=== PATIENT | female | born 1990 | race Hispanic/Latino ===

== ENCOUNTER 2021-05-14 10:31 | Emergency (ER) | payer OTHER ==
[~2021-05-14] VITALS: Ht 167.6 cm; Wt 113.4 kg
[2021-05-14 11:36] LABS: BASOPHILS % (AUTO) 0.4 % (0.0-5.0); EOSINOPHILS % (AUTO) 0.3 % (0.0-8.0); HEMATOCRIT 40.2 % (36-48); LYMPHOCYTES % (AUTO) 28.9 % (21.0-51.0); MEAN CORPUSCULAR HEMOGLOBIN 30.5 pg (27.0-33.0); MEAN CORPUSCULAR HGB CONC 33.3 g/dL (32.0-36.0); MEAN CORPUSCULAR VOLUME 91.6 fL (79-99); MONOCYTES % (AUTO) 9.2 % (3.0-13.0); NEUTROPHILS % (AUTO) 60.8 % (40.0-77.0); PLATELET COUNT (AUTO) 255 K/uL (130-400); RED BLOOD CELL COUNT(AUTO) 4.39 MIL/uL (4.00-5.50); RED CELL DISTRIBUTION WIDTH 13.2 % (11.0-15.5); WHITE BLOOD COUNT (AUTO) 7.2 K/uL (4.8-10.8)
[2021-05-14 11:58] LABS: CREATININE 0.6 mg/dL (0.5-1.5); POTASSIUM 4.2 mmol/L (3.5-5.1)
[2021-05-14] MEDS: CEFTRIAXONE 1G VIAL IVP ONE ×2 (12:24→12:41)
[2021-05-14] MEDS ORDERED: SULFAMETHOX-TMP DS 800/160 TAB PO SCH (12:30)
[2021-05-14] MEDS ORDERED: SULF1TAB42 PO (12:41)
[2021-05-14] MEDS ORDERED: CEPH500B PO (12:41)
[2021-05-14 12:42] VITALS: BP 114/61
== END 2021-05-14 12:51 | disposition home or self-care (01) ==
LOC: EDH 10:31
DX: L03.113 Cellulitis of right upper limb (principal); L03.123 Acute lymphangitis of right upper limb; J45.909 Unspecified asthma, uncomplicated
CPT/HCPCS: 36415; 73130; 80048; 83605; 85025; 87040 ×2; 99284; J0696

== ENCOUNTER 2021-10-01 13:00 | Emergency (ER) | payer OTHER ==
[~2021-10-01] VITALS: Ht 165.1 cm; Wt 90.7 kg
[~2021-10-01 13:00] MED LIST: CEPH500B PO; SULF1TAB42 PO
[2021-10-01 13:49] LABS: BASOPHILS % (AUTO) 0.5 % (0.0-5.0); EOSINOPHILS % (AUTO) 1.8 % (0.0-8.0); HEMATOCRIT 36.9 % (36-48); LYMPHOCYTES % (AUTO) 37.3 % (21.0-51.0); MEAN CORPUSCULAR HEMOGLOBIN 31.3 pg (27.0-33.0); MEAN CORPUSCULAR HGB CONC 33.6 g/dL (32.0-36.0); MEAN CORPUSCULAR VOLUME 93.2 fL (79-99); MONOCYTES % (AUTO) 8.3 % (3.0-13.0); NEUTROPHILS % (AUTO) 51.9 % (40.0-77.0); PLATELET COUNT (AUTO) 278 K/uL (130-400); RED BLOOD CELL COUNT(AUTO) 3.96 MIL/uL (4.00-5.50); RED CELL DISTRIBUTION WIDTH 13.1 % (11.0-15.5); WHITE BLOOD COUNT (AUTO) 9.4 K/uL (4.8-10.8)
[2021-10-01 13:58] LABS: CREATININE 0.6 mg/dL (0.5-1.5); POTASSIUM 3.7 mmol/L (3.5-5.1)
[2021-10-01] MEDS ORDERED: KETOROLAC 60 MG VIAL (30MG/ML) IM ONE (14:00)
[2021-10-01 14:05] LABS: APPEARANCE,URINE Cloudy (CLEAR); BILIRUBIN,URINE Negative (NEGATIVE); COLOR,URINE Yellow (YELLOW); GLUCOSE, URINE (UA) Negative (NEGATIVE); KETONES,URINE Negative (NEGATIVE); LEUKOCYTE ESTERASE ,URINE Negative (NEGATIVE); NITRATE,URINE Negative (NEGATIVE); OCCULT BLOOD,URINE Negative (NEGATIVE); PROTEIN,URINE Negative (NEGATIVE)
[2021-10-01 14:09] LABS: HCG,QUAL RESULT NEGATIVE (NEGATIVE)
[2021-10-01 14:10] LABS: ALBUMIN 3.4 g/dL (3.5-5.0); BILIRUBIN,TOTAL 0.2 mg/dL (0.2-1.0); TOTAL PROTEIN, SERUM 6.9 g/dL (6.0-8.3)
[2021-10-01 14:20] LABS: BACTERIA,URINE Few /HPF (None Seen); RBC,URINE 0-1 /HPF (0-1); SQUAMOUS EPITHELIAL CELL,UR Few /HPF (0-2); WBC,URINE 0-1 /HPF (0-1)
[2021-10-01] MEDS ORDERED: BENZ-39 PO (14:50)
[2021-10-01] MEDS ORDERED: DOXY-336 PO (14:50)
[2021-10-01 15:29] VITALS: BP 123/64
== END 2021-10-01 15:30 | disposition home or self-care (01) ==
LOC: EDH 13:00
DX: J20.8 Acute bronchitis due to other specified organisms (principal); B96.89 Other specified bacterial agents as the cause of diseases classified elsewhere; R07.89 Other chest pain; J45.909 Unspecified asthma, uncomplicated; F17.210 Nicotine dependence, cigarettes, uncomplicated; Z79.1 Long term (current) use of non-steroidal anti-inflammatories (NSAID)
CPT/HCPCS: 36415; 71045; 80053; 81001; 81025; 84484; 85025; 93005; 96372; 99285; J1885

== ENCOUNTER 2021-10-30 07:10 | Emergency (ER) | payer OTHER ==
[~2021-10-30] VITALS: Ht 167.6 cm; Wt 112.0 kg
[~2021-10-30 07:10] MED LIST changes: +BENZ-39 PO; +DOXY-336 PO
[2021-10-30 07:23] VITALS: BP 117/91
[2021-10-30] MEDS ORDERED: CIPR7.5D OT (07:39)
[2021-10-30] MEDS ORDERED: ACET-2079 PO (07:39)
[2021-10-30] MEDS ORDERED: IBUP-2070 PO (07:39)
[2021-10-30] MEDS ORDERED: CIPROFLOXACIN HCL 0.2%/HYDROCORT 1% 10 ML OTIC SUSP OTIC SCH (08:00)
[2021-10-30] MEDS ORDERED: ACETAMINOPHEN WITH CODEINE 1 TAB TAB PO ONE (08:00)
[2021-10-30] MEDS ORDERED: IBUPROFEN 600 MG TABLET PO ONE (08:00)
== END 2021-10-30 07:48 | disposition home or self-care (01) ==
LOC: EDH 07:10
DX: H60.92 Unspecified otitis externa, left ear (principal); H60.332 Swimmer's ear, left ear; J45.909 Unspecified asthma, uncomplicated